=== PATIENT | female | born 1965 | race Caucasian/White ===

== ENCOUNTER 2018-05-16 09:42 | Emergency (ER) | payer MEDICAID ==
[~2018-05-16] VITALS: Ht 172.7 cm; Wt 115.7 kg
[2018-05-16] MEDS ORDERED: ASPIR 8181 MG PO (10:05)
[2018-05-16] MEDS ORDERED: AMITRIPTYLINE H75 M1 PO (10:05)
[2018-05-16] MEDS ORDERED: WELLBUTRIN XL300 MG PO (10:06)
[2018-05-16] MEDS ORDERED: ALL DAY ALLERGY10 M3 PO (10:06)
[2018-05-16] MEDS ORDERED: ROBAXIN 750 MG750 M1 PO (10:08)
[2018-05-16] MEDS ORDERED: DICLOFENAC SODI75 MG PO (10:08)
[2018-05-16] MEDS ORDERED: NEURONTIN 300300 M1 PO (10:08)
[2018-05-16] MEDS ORDERED: PRILOSEC OTC20 MG PO (10:09)
[2018-05-16] MEDS ORDERED: OXYCODONE HCL10 MG PO (10:09)
[2018-05-16] MEDS ORDERED: ZANTAC 150MG T150 MG PO (10:10)
[2018-05-16] MEDS ORDERED: VENTOLIN HFA 1818 GM INH (10:10)
[2018-05-16 10:17] LABS: ABSOLUTE BASOPHILS 0.1 thou/uL (0.0-0.2); ABSOLUTE EOSINOPHILS 0.3 thou/uL (0.0-0.7); ABSOLUTE LYMPHOCYTES 2.2 thou/uL (0.8-5.3); ABSOLUTE MONOCYTES 0.4 thou/uL (0.0-1.2); ABSOLUTE NEUTROPHILS 3.1 thou/uL (1.6-8.1); BASOPHILS 1.2 %; EOSINOPHILS 4.2 %; HEMATOCRIT 31.9 % (37.0-47.0); HEMOGLOBIN 10.6 gm/dL (12.0-15.0); LYMPHOCYTES 36.6 %; MCH 30.2 pg (26.0-34.0); MCHC 33.4 g/dL (28.0-37.0); MCV 90.3 fL (80.0-100.0); MONOCYTES 7.1 %; MPV 8.1 fl. (7.2-11.1); NUCLEATED RBCS 0 /100WBC; PLATELET COUNT* 393 thou/uL (150-400); POLYS 50.9 %; RBC 3.53 mil/uL (4.20-5.00); RDW-CV 15.7 % (10.5-14.5); WBC 6.1 thou/uL (4.0-11.0)
[2018-05-16 10:33] LABS: ANION GAP 4 mmol/L (7-16); BUN 15 mg/dL (7-18); CALCIUM 9.3 mg/dL (8.5-10.1); CHLORIDE 101 mmol/L (98-107); CO2 30 mmol/L (21-32); CREATININE 1.3 mg/dL (0.6-1.3); GLUCOSE 86 mg/dL (70-99); POTASSIUM 4.4 mmol/L (3.5-5.1); SODIUM 135 mmol/L (136-145); TROPONIN-I LEVEL <0.06 ng/mL (<0.06)
[2018-05-16 10:35] LABS: APTT 29.3 Seconds (25.0-31.3); PROTIME 10.3 Seconds (9.20-11.50)
[2018-05-16 10:46] LABS: ALBUMIN 3.2 g/dL (3.4-5.0); ALKALINE PHOSPHATASE 147 U/L (46-116); CK-MB MASS 2.3 ng/mL (<0.5-3.6); LIPASE 196 U/L (73-393); MAGNESIUM 2.1 mg/dL (1.8-2.4); NT-PRO BRAIN NAT PEPTIDE 26 pg/mL (<300); SGOT 18 U/L (15-37); SGPT 31 U/L (30-65); TOTAL BILIRUBIN 0.3 mg/dL (<0.1-1.0); TOTAL PROTEIN 7.9 g/dL (6.4-8.2)
[2018-05-16 11:09] VITALS: BP 140/57
--- NOTE | 2018-05-16 16:36 | EKG ---
[place] [address] ELECTROCARDIOGRAM REPORT Name: NESHA JAY Room: [facility]#: [id number] Admission: 05/16/18 Attend Phys: Discharge: 05/16/18 Date of : 69 Report #: [id number] THIS REPORT FOR: //name// [facility] ED Test Date: 2018-05-16 Test Time: 09:56:26 Pat Name: NESHA JAY Department: Room: Gender: F Internal Medicine Nurse Practitioner: Miguelina NINO : 1965 Requested By: Antonio Barton Order Number: [id number] MD: Regino Thomas Measurements Intervals [place] Rate: 77 P: 31 [place]: 168 QRS: -37 QRSD: 125 T: 90 QT: 385 QTc: 436 Interpretive Statements Sinus rhythm Left bundle branch block, incomplete No previous ECG available for comparison Electronically Signed On 05-16-2018 16:36:43 [employer] by Regino Thomas [email or web address] <ELECTRONICALLY SIGNED> By: Regino Thomas MD, [facility] 05/16/18 [id number] Regino Thomas MD, FACC /EPI
== END 2018-05-16 11:10 | disposition home or self-care (01) ==
LOC: M.ERS 09:42
PROVIDERS: Family Medicine
DX: R06.00 Dyspnea, unspecified (principal); F17.200 Nicotine dependence, unspecified, uncomplicated; J44.9 Chronic obstructive pulmonary disease, unspecified; Z88.0 Allergy status to penicillin; Z88.2 Allergy status to sulfonamides; Z88.6 Allergy status to analgesic agent